=== PATIENT | female | born 1980 | race Caucasian/White ===

== ENCOUNTER 2021-01-31 17:33 | Emergency (ER) | payer BC ==
[2021-01-31 18:17] LABS: #Eosinphils 0.1 10x3/uL (0.0-0.5); #Monocytes 0.5 10x3/uL (0.0-1.1); %Basophils 0.4 % (0.0-2.0); %Eosinophils 1.1 % (0.0-6.0); %Lymphocytes 4.2 % (18.0-47.0); %Monocytes 10.5 % (0.0-10.0); %Neutrophils 83.6 % (40.0-75.0); Mean Corpuscular HGB CONC 33.2 g/dL (32.0-36.0); Mean Corpuscular Hemoglobin 30.2 pg (27.0-33.0); Mean Corpuscular Volume 90.7 fl (81.6-98.3); Mean Platelet Volume 10.5 fl (7.4-10.4); Platelet Count 223 10x3/uL (150-450); RBC Distribution Width 12.1 % (11.5-14.5); Red Blood Cell (RBC) Count 4.31 10x6/uL (3.90-5.03); White Blood Cell (WBC) Count 4.7 10x3/uL (3.5-10.5)
[2021-01-31] MEDS ORDERED: Ketorolac Tromethamine 30 MG/ML VIAL ONE (18:26)
[2021-01-31] MEDS ORDERED: Metoclopramide HCl 10 MG/2 ML VIAL ONE (18:26)
[2021-01-31 18:33] LABS: ALT (SGPT) 19 U/L (8-55); AST (SGOT) 16 U/L (5-34); Albumin 3.8 g/dL (3.5-5.0); Alkaline Phosphatase 68 U/L (40-110); Anion Gap 12 mmol/L (10-20); BUN (Urea Nitrogen) 6 mg/dL (7.0-18.7); Bilirubin, Total 0.5 mg/dL (0.2-1.2); CK (CPK) 43 U/L (29-168); Calc. Creatinine Clearance 0 mL/min (70-130); Calcium 8.5 mg/dL (7.8-10.44); Carbon Dioxide 22 mmol/L (22-29); Chloride 106 mmol/L (98-107); Globulin 3.2 g/dL (2.4-3.5); Glucose 102 mg/dL (70-105); Potassium 3.5 mmol/L (3.5-5.1); Sodium 136 mmol/L (136-145)
[2021-01-31 18:38] LABS: BHCG - Serum Negative (NEGATIVE); Pregs Control Background? CLEAR/WHITE (CLR/WHITE); Pregs Control Bar Appear? YES (CONTROL BAR)
[2021-01-31] MEDS ORDERED: Morphine 4 MG/ML VIAL ONE (18:44)
[2021-01-31 19:15] LABS: SARS-CoV-2 NAA Rapid Test DETECTED (NotDetected)
[2021-01-31] MEDS ORDERED: Ondansetron PF 4 MG/2 ML Vial ONE (19:20)
== END 2021-01-31 19:45 | disposition home or self-care (01) ==
LOC: CSHERS 17:33
DX: U07.1 COVID-19 (principal); F17.210 Nicotine dependence, cigarettes, uncomplicated
CPT/HCPCS: 0240U; 70450; 71045; 80053; 82550; 83605; 84703; 85025; 93005; 96365; 96375; J1885; J2270; J2405; J2765

== ENCOUNTER 2021-09-20 13:16 | Outpatient (CLI) | payer BC | END 2021-09-20 13:17 | disposition home or self-care (01) | LOC: CSHMAMMO 13:16 | PROVIDERS: ATTEND Family Medicine | DX: N63.21 Unspecified lump in the left breast, upper outer quadrant (principal) | CPT/HCPCS: 77066; G0279 ==

== ENCOUNTER 2021-11-19 12:15 | Inpatient (IN) | payer BC ==
[2021-11-19] MEDS ORDERED: Morphine 4 MG/ML VIAL ONE ×2 (13:17→17:59)
[2021-11-19] MEDS ORDERED: Ondansetron PF 4 MG/2 ML Vial ONE ×2 (13:18→14:14)
[2021-11-19 13:19] LABS: #Eosinphils 0.1 10x3/uL (0.0-0.5); #Monocytes 0.7 10x3/uL (0.0-1.1); #Neutrophils 5.2 10x3/uL (1.5-8.4); %Basophils 0.6 % (0.0-2.0); %Eosinophils 1.4 % (0.0-6.0); %Lymphocytes 3.7 % (18.0-47.0); %Monocytes 10.4 % (0.0-10.0); %Neutrophils 83.6 % (40.0-75.0); Hemoglobin 13.8 g/dL (12.0-15.5); Mean Corpuscular HGB CONC 33.1 g/dL (32.0-36.0); Mean Corpuscular Hemoglobin 30.1 pg (27.0-33.0); Mean Platelet Volume 9.9 fl (7.4-10.4); Platelet Count 208 10x3/uL (150-450); RBC Distribution Width 12.4 % (11.5-14.5); Red Blood Cell (RBC) Count 4.58 10x6/uL (3.90-5.03); White Blood Cell (WBC) Count 6.2 10x3/uL (3.5-10.5)
[2021-11-19 13:20] LABS: Bilirubin Neg (Negative); Blood, Urine 10 (Negative); Clarity Clear (Clear); Glucose, Urine (Dipstick) Normal (Negative); Ketone, Urine Negative (Negative); Leukocyte Negative (Negative); Nitrite Negative (Negative); Protein, Urine (Dipstick) 15 mg/dl (Neg-Trace)
[2021-11-19 13:28] LABS: BHCG - Serum Negative (NEGATIVE); Pregs Control Background? CLEAR/WHITE (CLR/WHITE); Pregs Control Bar Appear? YES (CONTROL BAR)
[2021-11-19 13:35] LABS: ALT (SGPT) 31 U/L (8-55); AST (SGOT) 41 U/L (5-34); Alkaline Phosphatase 72 U/L (40-110); Anion Gap 14 mmol/L (10-20); BUN (Urea Nitrogen) 7 mg/dL (7.0-18.7); Bilirubin, Total 0.9 mg/dL (0.2-1.2); Calc. Creatinine Clearance 0 mL/min (70-130); Calcium 9.2 mg/dL (7.8-10.44); Carbon Dioxide 22 mmol/L (22-29); Chloride 107 mmol/L (98-107); Globulin 3.7 g/dL (2.4-3.5); Glucose 105 mg/dL (70-105); Lipase 10 U/L (8-78); Potassium 3.5 mmol/L (3.5-5.1); Protein, Total 7.7 g/dL (6.0-8.3); Sodium 139 mmol/L (136-145)
[2021-11-19 13:36] LABS: Bacteria/HPF 2+ HPF (None Seen); Mucous/LPF 2+ LPF (<2+); RBC/HPF 0-3 HPF (0-3); WBC/HPF 0-3 HPF (0-3)
[2021-11-19 14:14] LABS: SARS-CoV-2 NAA Rapid Test DETECTED (NotDetected)
[2021-11-19] MEDS ORDERED: Lorazepam 2 MG/ML VIAL ONE (14:59)
[2021-11-19] MEDS ORDERED: Ciprofloxacin 500 MG TAB ONE (16:54)
[2021-11-19] MEDS ORDERED: Ketorolac Tromethamine 30 MG/ML VIAL ONE (17:25)
[2021-11-19] MEDS ORDERED: Calcium Carbonate 500 MG ChewTAB PO PRN (20:57)
[2021-11-19] MEDS ORDERED: HYDROcodone/Acetaminophen 5/325 mg Tablet PO PRN (20:57)
[2021-11-19] MEDS ORDERED: Acetaminophen 325 MG TAB PO PRN (20:57)
[2021-11-19] MEDS ORDERED: Guaifenesin DM 100-10/5 ML UDCUP PO PRN (20:57)
[2021-11-19] MEDS ORDERED: Zolpidem Tartrate 5 MG TAB PO PRN (20:57)
[2021-11-19] MEDS ORDERED: Metoclopramide HCl 10 MG/2 ML VIAL IVP SCH (21:00)
[2021-11-19] MEDS ORDERED: diphenhydrAMINE 50 MG/ML VIAL IVP SCH (21:00)
[2021-11-19] MEDS ORDERED: Famotidine/PF 20 mg/2ml Vial SLOW IVP SCH (21:00)
[2021-11-19] MEDS: Nicotine 21 MG PATCH TD SCH (22:00)
[2021-11-19] MEDS: Lactated Ringer's 1,000 ML IV SCH (22:00)
[2021-11-19] MEDS: Pantoprazole 40 MG VIAL IVP SCH (22:00)
[2021-11-19] MEDS ORDERED: Pantoprazole 40 MG VIAL ONE (22:56)
[2021-11-19] MEDS ORDERED: Famotidine/PF 20 mg/2ml Vial ONE (22:56)
[2021-11-19] MEDS ORDERED: Metoclopramide HCl 10 MG/2 ML VIAL ONE (22:56)
[2021-11-19] MEDS ORDERED: diphenhydrAMINE 50 MG/ML VIAL ONE (22:56)
[2021-11-20] MEDS: Lactated Ringer's 1,000 ML IV SCH ×3 (05:09→21:45)
[2021-11-20 05:23] LABS: Mean Corpuscular HGB CONC 33.4 g/dL (32.0-36.0); Mean Corpuscular Hemoglobin 30.5 pg (27.0-33.0); Mean Corpuscular Volume 91.3 fl (81.6-98.3); Mean Platelet Volume 9.9 fl (7.4-10.4); Platelet Count 172 10x3/uL (150-450); RBC Distribution Width 12.7 % (11.5-14.5); Red Blood Cell (RBC) Count 3.93 10x6/uL (3.90-5.03); White Blood Cell (WBC) Count 2.9 10x3/uL (3.5-10.5)
[2021-11-20 05:29] LABS: Anion Gap 12 mmol/L (10-20); BUN (Urea Nitrogen) 8 mg/dL (7.0-18.7); Calc. Creatinine Clearance 0 mL/min (70-130); Calcium 8.2 mg/dL (7.8-10.44); Carbon Dioxide 23 mmol/L (22-29); Chloride 107 mmol/L (98-107); Glucose 93 mg/dL (70-105); Potassium 3.9 mmol/L (3.5-5.1); Sodium 138 mmol/L (136-145)
[2021-11-20] MEDS ORDERED: Ondansetron PF 4 MG/2 ML Vial ONE ×3 (06:44→21:14)
[2021-11-20] MEDS ORDERED: Morphine 4 MG/ML VIAL ONE ×2 (06:44→11:29)
[2021-11-20] MEDS: Ondansetron PF 4 MG/2 ML Vial IVP PRN ×2 (06:47→21:45)
[2021-11-20] MEDS: Morphine 4 MG/ML VIAL SLOW IVP PRN ×2 (06:47→11:36)
[2021-11-20 07:45] LABS: MDiff Complete? YES
[2021-11-20 08:21] LABS: Band 1 % (5-11); Eosinophils 1 % (0-10); Lymphocytes 10 % (21-51); Monocytes 16 % (0-10); Neutrophil 72 % (42-75)
[2021-11-20 08:22] LABS: Platelet Morphology Comment Appears Adequate
[2021-11-20] MEDS ORDERED: Zinc Gluconate 50 MG TAB PO SCH (09:00)
[2021-11-20] MEDS ORDERED: Enoxaparin Sodium 40 MG/0.4 ML SYRINGE SC SCH (09:00)
[2021-11-20] MEDS ORDERED: Ascorbic Acid 500 mg Chewable Tablet PO SCH (09:00)
[2021-11-20] MEDS ORDERED: Cholecalciferol 1,000 UNITS (25 MCG) TAB PO SCH (09:00)
[2021-11-20] MEDS ORDERED: Ketorolac Tromethamine 30 MG/ML VIAL ONE ×2 (12:32→18:31)
[2021-11-20] MEDS: Ketorolac Tromethamine 30 MG/ML VIAL IVP PRN (12:55)
[2021-11-20] MEDS ORDERED: HYDROcodone/Acetaminophen 5/325 mg Tablet ONE (16:42)
[2021-11-20] MEDS ORDERED: Pantoprazole 40 MG VIAL ONE (20:55)
[2021-11-20] MEDS ORDERED: Nicotine 14 MG PATCH ONE (21:14)
[2021-11-20] MEDS ORDERED: HYDROmorphone 0.5 MG/0.5 ML SYRINGE ONE (21:15)
[2021-11-20] MEDS: Pantoprazole 40 MG VIAL IVP SCH (21:45)
[2021-11-20] MEDS: Nicotine 21 MG PATCH TD SCH (21:45)
[2021-11-20] MEDS: HYDROmorphone 0.5 MG/0.5 ML SYRINGE SLOW IVP PRN (22:03)
[2021-11-20] MEDS ORDERED: diphenhydrAMINE 25 MG CAP ONE (23:14)
[2021-11-21] MEDS ORDERED: Acetaminophen 325 MG TAB ONE (02:34)
[2021-11-21 03:31] LABS: #Eosinphils 0.1 10x3/uL (0.0-0.5); #Monocytes 0.4 10x3/uL (0.0-1.1); #Neutrophils 1.4 10x3/uL (1.5-8.4); %Monocytes 13.5 % (0.0-10.0); %Neutrophils 45.2 % (40.0-75.0); Hemoglobin 11.7 g/dL (12.0-15.5); Mean Corpuscular HGB CONC 33.1 g/dL (32.0-36.0); Mean Corpuscular Hemoglobin 30.5 pg (27.0-33.0); Mean Corpuscular Volume 91.9 fl (81.6-98.3); Mean Platelet Volume 9.8 fl (7.4-10.4); Platelet Count 164 10x3/uL (150-450); RBC Distribution Width 12.7 % (11.5-14.5); Red Blood Cell (RBC) Count 3.84 10x6/uL (3.90-5.03)
[2021-11-21 03:49] LABS: Anion Gap 12 mmol/L (10-20); BUN (Urea Nitrogen) 8 mg/dL (7.0-18.7); Calc. Creatinine Clearance 0 mL/min (70-130); Carbon Dioxide 23 mmol/L (22-29); Chloride 107 mmol/L (98-107); Glucose 91 mg/dL (70-105); Potassium 3.8 mmol/L (3.5-5.1); Sodium 138 mmol/L (136-145)
[2021-11-21] MEDS ORDERED: Ketorolac Tromethamine 30 MG/ML VIAL ONE (04:40)
[2021-11-21] MEDS: Ketorolac Tromethamine 30 MG/ML VIAL IVP PRN (04:42)
[2021-11-21] MEDS ORDERED: Morphine 4 MG/ML VIAL SLOW IVP PRN (05:30)
[2021-11-21] MEDS: HYDROmorphone 0.5 MG/0.5 ML SYRINGE SLOW IVP PRN (08:30)
[2021-11-21] MEDS ORDERED: Ondansetron PF 4 MG/2 ML Vial ONE (10:09)
[2021-11-21] MEDS ORDERED: HYDROmorphone 0.5 MG/0.5 ML SYRINGE ONE (10:09)
== END 2021-11-21 20:00 | disposition home or self-care (01) | DRG 178 ==
LOC: CSHERS 12:15 → CSHERHOLD 23:20
PROVIDERS: ADMIT Student in an Organized Health Care Education/Training Program; ATTEND Internal Medicine
PROC: 8E0ZXY6 Isolation (ICD-10-PCS; principal; 2021-11-19)
DX: U07.1 COVID-19 (principal); N10 Acute pyelonephritis; E86.0 Dehydration; E66.01 Morbid (severe) obesity due to excess calories; K21.00 Gastro-esophageal reflux disease with esophagitis, without bleeding; G43.909 Migraine, unspecified, not intractable, without status migrainosus; K44.9 Diaphragmatic hernia without obstruction or gangrene; F17.210 Nicotine dependence, cigarettes, uncomplicated; Z71.6 Tobacco abuse counseling; Z88.0 Allergy status to penicillin; Z79.891 Long term (current) use of opiate analgesic; Z79.899 Other long term (current) drug therapy; Z98.84 Bariatric surgery status; Z88.8 Allergy status to other drugs, medicaments and biological substances; Z90.49 Acquired absence of other specified parts of digestive tract; Z90.89 Acquired absence of other organs; Z90.711 Acquired absence of uterus with remaining cervical stump
CPT/HCPCS: 36415; 71275; 74176; 80048; 80053; 81003; 81015; 83605; 83690; 84443; 84484; 84703; 85025; 85379; 87040; 87086; 93005; 96374; 96375; 96376; C9113; J1170; J1200; J1650; J1885; J1956; J2060; J2270; J2405; J2765; J7120; S0028; U0002

== ENCOUNTER 2023-01-05 19:56 | Emergency (ER) | payer BC ==
[~2023-01-05 19:56] MED LIST: Iopamidol 300 61% 100 ML VIAL FS ONE
[2023-01-05] MEDS ORDERED: Ondansetron PF 4 MG/2 ML Vial ONE (20:43)
[2023-01-05] MEDS ORDERED: Dicyclomine 20 MG/2 ML VIAL ONE (20:43)
[2023-01-05 20:55] LABS: #Basophils 0.1 10x3/uL (0.0-0.2); #Eosinphils 0.3 10x3/uL (0.0-0.5); #Monocytes 0.8 10x3/uL (0.0-1.1); %Basophils 0.6 % (0.0-2.0); %Eosinophils 3.1 % (0.0-6.0); %Lymphocytes 16.3 % (18.0-47.0); %Monocytes 7.3 % (0.0-10.0); %Neutrophils 72.3 % (40.0-75.0); Mean Corpuscular HGB CONC 34.1 g/dL (32.0-36.0); Mean Corpuscular Hemoglobin 30.7 pg (27.0-33.0); Mean Corpuscular Volume 90.2 fl (81.6-98.3); Mean Platelet Volume 9.9 fl (7.4-10.4); Platelet Count 328 10x3/uL (150-450); RBC Distribution Width 12.5 % (11.5-14.5); Red Blood Cell (RBC) Count 4.88 10x6/uL (3.90-5.03)
[2023-01-05 21:07] LABS: ALT (SGPT) 31 U/L (8-55); AST (SGOT) 21 U/L (5-34); Albumin 4.3 g/dL (3.5-5.0); Alkaline Phosphatase 72 U/L (40-110); Anion Gap 17 mmol/L (10-20); BUN (Urea Nitrogen) 10 mg/dL (7.0-18.7); Bilirubin, Total 0.6 mg/dL (0.2-1.2); Calc. Creatinine Clearance 0 mL/min (70-130); Calcium 9.7 mg/dL (7.8-10.44); Carbon Dioxide 19 mmol/L (22-29); Chloride 106 mmol/L (98-107); Estimated GFR 81; Globulin 3.8 g/dL (2.4-3.5); Glucose 121 mg/dL (70-105); Lipase 14 U/L (8-78); Magnesium 2.1 mg/dL (1.6-2.6); Protein, Total 8.1 g/dL (6.0-8.3); Sodium 138 mmol/L (136-145)
[2023-01-05] MEDS ORDERED: Acetaminophen 500 MG TAB ONE (21:11)
[2023-01-05 21:20] LABS: Bilirubin Neg (Negative); Blood, Urine Negative (Negative); Clarity Slightly Cloudy (Clear); Glucose, Urine (Dipstick) Normal (Negative); Ketone, Urine Negative (Negative); Leukocyte Negative (Negative); Nitrite Negative (Negative); Protein, Urine (Dipstick) Negative (Neg-Trace); Urobilinogen Normal mg/dL (Less than 2)
[2023-01-05] MEDS ORDERED: diphenhydrAMINE 50 MG/ML VIAL ONE (21:25)
[2023-01-05 21:26] LABS: Pregnancy Test - Urine (BHCG) Negative (Negative); Pregu Control Background? CLEAR/WHITE (CLR/WHITE); Pregu Control Bar Appear? YES (CONTROL BAR)
[2023-01-05] MEDS ORDERED: Metoclopramide HCl 10 MG/2 ML VIAL ONE (21:26)
[2023-01-05] MEDS ORDERED: Morphine 4 MG/ML VIAL ONE (21:53)
[2023-01-05 21:57] LABS: SARS-CoV-2 NAA Rapid Test Not Detected (NotDetected)
== END 2023-01-05 22:47 | disposition home or self-care (01) ==
LOC: CSHERS 19:56
DX: E86.0 Dehydration (principal); K21.9 Gastro-esophageal reflux disease without esophagitis; I10 Essential (primary) hypertension; F17.210 Nicotine dependence, cigarettes, uncomplicated; Z20.822 Contact with and (suspected) exposure to COVID-19
CPT/HCPCS: 70450; 71045; 74177; 80053; 81003; 81025; 83605; 83690; 83735; 84484; 85025; 96361; 96372; 96374; 96375; J1200; J2270; J2405; J2765; Q9967